=== PATIENT | male | born 1965 | race Caucasian/White ===

== ENCOUNTER → 2021-01-11 | Outpatient (CLI) | payer OTHER | LOC: ECHO 12:00 → NM 13:00 | DX: R07.9 Chest pain, unspecified (principal); R06.02 Shortness of breath | CPT/HCPCS: ECHO; 78452; 93017; 93306; A9502; J2785 ==

== ENCOUNTER 2021-06-08 09:42 | Day surgery (SDC) | payer OTHER ==
[~2021-06-08] VITALS: Ht 175.3 cm; Wt 98.4 kg
[~2021-06-08 09:42] MED LIST: ALBUTEROL1.25 MG/3 INH; AMBIEN5 MG PO; CYCLOBENZAPRINE10 MG PO; LISINOPRIL5 MG PO; PROAIR HFA8.5 GM INH; ROPINIROLE HCL2 M1 PO; SIMVASTATIN20 MG PO; TYLENOL EXTRA500 MG PO
[2021-06-08] MEDS ORDERED: FISH OIL 1,2001 EACH PO (16:32)
[2021-06-08] MEDS ORDERED: [UNRECOGNIZED DRUG - OTHER] PO (16:33)
[2021-06-09] MEDS ORDERED: NICOTINE PATCH1 EAC2 TOP (08:42)
[2021-06-09] MEDS ORDERED: PERCOCET 5/325 T1 EA PO (08:42)
--- NOTE | 2021-06-09 10:11 | NUR ---
1000- Called dr. Camargo for clarification on home meds before discharge. Order to continue home meds.
--- NOTE | 2021-06-09 10:17 | NUR ---
1017- PATIENT REFUSED FLU SHOT AT THIS TIME.
== END 2021-06-09 10:39 | disposition home or self-care (01) ==
LOC: OR 09:42 → MED SURG 4 16:01 → OR 06-09 10:39
DX: K43.2 Incisional hernia without obstruction or gangrene (principal); I10 Essential (primary) hypertension; E78.5 Hyperlipidemia, unspecified; J44.9 Chronic obstructive pulmonary disease, unspecified; R07.9 Chest pain, unspecified; E78.00 Pure hypercholesterolemia, unspecified; F17.200 Nicotine dependence, unspecified, uncomplicated; E66.9 Obesity, unspecified; Z68.32 Body mass index [BMI] 32.0-32.9, adult; Z86.010 Personal history of colon polyps; Z88.0 Allergy status to penicillin; Z88.5 Allergy status to narcotic agent; Z79.899 Other long term (current) drug therapy
CPT/HCPCS: 94664; 94760; C1781; J1100; J1170; J1885; J2001; J2250; J2270; J2405; J2704; J2710; J3010; J3370; J7030; J7050; J7120